=== PATIENT | male | born 1930 | race Caucasian/White ===

== ENCOUNTER 2016-12-16 13:21 | Inpatient (IN) | payer MEDICARE, OTHER ==
[~2016-12-16 13:21] MED LIST: ACETAMINOPHEN650 M4 PO; ADVAIR; AMLODIPINE BESYL5 MG PO; ASPIRIN; ASPIRIN81 MG PO; CALCIUM600 MG PO; CELEBREX; CELEBREX200 MG PO; COUMADIN1 M1 PO; COUMADIN2.5 M1 PO; COUMADIN5 M1 PO; CRESTOR; DIOVAN; DIOVAN320 MG PO; DIOVAN80 M1 PO; FEROSUL325 MG PO; FINASTERIDE; FINASTERIDE5 M1 PO; FISH OIL 1,0001 CA1 PO; HALFPRIN162 MG PO; LANSOPRAZOLE30 MG PO; LASIX40 MG PO; LEVAQUIN250 M3 PO; LOVENOX SC; METFORMIN; MUCINEX600 M1 PO; NORCO 5/3251 TAB PO; POTASSIUM CHLORIDE; PREVACID; SORINE80 M2 PO; SORINE80 MG PO; SOTALOL80 M1 PO; TERAZOSIN; TERAZOSIN5 MG PO; TRAMADOL HCL50 MG PO; VITAMIN D-1000 UNIT/ PO
[2016-12-16] MEDS ORDERED: LASIX40 M1 PO (14:40)
[2016-12-16] MEDS ORDERED: KLOR-CON 1010 ME1 PO (14:42)
[2016-12-16] MEDS ORDERED: ZEBETA10 M1 PO (14:42)
[2016-12-16] MEDS ORDERED: TYLENOL325 M2 PO (14:44)
[2016-12-16] MEDS ORDERED: MYAMBUTOL400 M2 PO (14:45)
[2016-12-16] MEDS ORDERED: ZITHROMAX500 M2 PO (14:46)
[2016-12-16] MEDS ORDERED: RIFAMPIN300 M1 PO (14:47)
[2016-12-16 15:00] LABS: BASO % 0.3 % (0-2); EOS % 1.2 % (0-7); EOSINOPHIL ABSOLUTE COUNT 0.1 tho/cmm (0.0-0.7); HCT-HEMATOCRIT 41.7 % (36.0-53.5); IMMATURE GRANULOCYTES ABSOLUTE 0.01 tho/cmm (0-0.03); IMMATURE GRANULOCYTES PERCENT 0.1 % (0-0.3); LYMPH % 18.1 % (20-45); LYMPH ABSOLUTE COUNT 1.2 tho/cmm (0.8-4.5); MCH (MEAN CORPUSCULAR HGB) 29.9 pg (28.0-32.0); MCHC MEAN CORPUSCULAR HGB CONC 33.6 % (32.0-36.0); MCV (MEAN CELL VOLUME) 88.9 fl (82.0-96.0); MEAN PLATELET VOLUME 10.7 cmc (9.4-12.4); MONOCYTE ABSOLUTE COUNT 0.6 tho/cmm (0.0-1.2); NEUTROPHIL ABSOLUTE COUNT 4.8 tho/cmm (1.6-8.0); NEUTROPHIL-AUTOMATED 4.8 tho/cmm (1.6-8.0); NEUTROPHILS % 71.3 % (40-80); PLATELET COUNT 130 tho/cmm (150-450); RED BLOOD COUNT 4.69 mil/cmm (4.40-5.70); RED CELL DISTRIBUTION WIDTH 14.3 % (12.4-16.4); WHITE BLOOD COUNT 6.8 tho/cmm (4.0-10.0)
[2016-12-16 15:02] LABS: INR 1.4 INR (0.9-1.1); PROTHROMBIN TIME 16.5 SECONDS (9.0-13.6)
[2016-12-16 15:13] LABS: ALB/GLOB RATIO 1.1 (0.8-2.0); ALBUMIN 3.6 g/dl (3.5-5.0); ALKALINE PHOSPHATASE 104 U/L (33-138); ALT/SGPT 17 U/L (12-78); ANION GAP 13 mmol/L (0-20); AST/SGOT 20 U/L (10-40); BILIRUBIN,TOTAL 0.6 mg/dl (0.0-1.5); BLOOD UREA NITROGEN 20 mg/dl (6-24); CALCIUM 8.7 mg/dl (8.5-10.5); CARBON DIOXIDE-VENOUS 26 mmol/L (22-32); CHLORIDE 110 mmol/l (96-110); CREATININE 1.09 mg/dl (0.60-1.30); GLUCOSE 96 mg/dL (70-110); POTASSIUM 4.7 mmol/L (3.7-5.1); SODIUM 144 mmol/L (135-145); eGFR VALUE FOR BLACK 71 mL/Min
[2016-12-16 15:24] LABS: C-REACTIVE PROTEIN <0.3 mg/dl (0-0.9)
[2016-12-16 15:40] LABS: URINE BILIRUBIN NEGATIVE (NEG); URINE BLOOD NEGATIVE (NEG); URINE GLUCOSE (UA) NEGATIVE (NEG); URINE KETONE NEGATIVE (NEG); URINE LEUKOCYTE ESTERASE NEGATIVE (NEG); URINE NITRITE NEGATIVE (NEG); URINE PROTEIN NEGATIVE (NEG)
[2016-12-16 15:42] LABS: URINE APPEARANCE CLEAR; URINE COLOR YELLOW
[2016-12-17 05:12] LABS: INR 1.4 INR (0.9-1.1); PROTHROMBIN TIME 16.5 SECONDS (9.0-13.6)
[2016-12-17 05:13] LABS: HCT-HEMATOCRIT 40.2 % (36.0-53.5); HGB-HEMOGLOBIN 13.4 gm/dl (13.5-17.0); MCV (MEAN CELL VOLUME) 89.7 fl (82.0-96.0); RED CELL DISTRIBUTION WIDTH 14.4 % (12.4-16.4)
[2016-12-17] MEDS ORDERED: NORCO 5-325 TA1 EACH PO (09:18)
== END 2016-12-17 13:55 | DRG 352 ==
LOC: EDMED 13:21 → EMR2 16:52 → ORW 18:28 → PACU 20:20 → 5WD 21:30
PROVIDERS: Emergency Medicine; Surgery; ADMIT Internal Medicine
PROC: 0YU64JZ Supplement Left Inguinal Region with Synthetic Substitute, Percutaneous Endoscopic Approach (ICD-10-PCS; principal; 2016-12-16)
DX: K40.30 Unilateral inguinal hernia, with obstruction, without gangrene, not specified as recurrent (principal); I48.2 Chronic atrial fibrillation; Z86.718 Personal history of other venous thrombosis and embolism; Z86.711 Personal history of pulmonary embolism; I10 Essential (primary) hypertension; K21.9 Gastro-esophageal reflux disease without esophagitis; M19.90 Unspecified osteoarthritis, unspecified site; N40.0 Benign prostatic hyperplasia without lower urinary tract symptoms; Z88.0 Allergy status to penicillin; Z88.8 Allergy status to other drugs, medicaments and biological substances; Z87.898 Personal history of other specified conditions; Z79.01 Long term (current) use of anticoagulants; Z79.899 Other long term (current) drug therapy
CPT/HCPCS: C1781; J0690; J1170; J3010; J7030; Q9967